=== PATIENT | female | born 1985 | race Caucasian/White ===

== ENCOUNTER 2022-01-10 09:02 | Observation (INO) ==
--- NOTE | 2022-01-07 11:39 | Anesthesiology Consultation ---
Date of Service January 07, 2022 Assessment & Plan (1) Encounter for pre-operative examination: - check urine test STAT am DOS. To anesthesiologist discretion if additional testing needed DOS. Patient transitioning name to Florentino, in process of changing legal documents. Preferred pronouns: he/him. - COVID screening: Per glue bone crusher on 01/07/2022: Travel screen negative, no known COVID-19 positive contacts or current COVID-19 related symptoms in past 2 weeks. Pt vaccinated. Surgeon arranging preop COVID testing, scheduled 01/08/2022. Awaiting results. Chart Review Chart Review: Acceptable Risk for Surgery and Patient NOT seen in Pre Admission Testing History Surgery Operation Date: 01/10/22 09:35 Proposed Procedures p Total Laparoscopic Hysterectomy with Bilateral Salpingo-oophorectomy, Cystoscopy with Possible Laparotomy - Vance Perrin MD Height/Weight Height: 5 ft 4.5 in Weight: 68.039 kg Allergies Allergy/AdvReac Type Severity Reaction Status Date / Time No Known Allergies Allergy Verified 01/07/22 10:45 Medications Home Medications Medication Instructions Recorded Confirmed Last Taken atorvastatin 10 mg tablet (Lipitor) 10 mg PO HS 01/07/22 01/07/22 Unknown qajkolyuwa-ulewknkczgzau-pjbxhazx 1 tab PO Q4H PRN 01/07/22 01/07/22 Unknown 50 mg-325 mg-40 mg tablet cholecalciferol (vitamin D3) 125 125 mcg PO QAM 01/07/22 01/07/22 Unknown mcg (5,000 unit) tablet (Vitamin D3) glucosamine-chondroitin 250 mg-200 1 tab PO QAM 01/07/22 01/07/22 Unknown mg tablet (Osteo Bi-Flex) hydroxyzine HCl 25 mg tablet 25 mg PO BID PRN 01/07/22 01/07/22 Unknown milk thistle 500 mg capsule 500 mg PO QAM 01/07/22 01/07/22 Unknown multivitamin 1 cap PO QAM 01/07/22 01/07/22 Unknown olanzapine 20 mg tablet 20 mg PO HS 01/07/22 01/07/22 Unknown omeprazole 20 mg capsule,delayed 20 mg PO QAM 01/07/22 01/07/22 Unknown release rizatriptan 10 mg tablet 10 mg PO UD PRN 01/07/22 01/07/22 Unknown testosterone cypionate 200 mg/mL 80 mg SUBCUT Q7D 01/07/22 01/07/22 Unknown intramuscular kit topiramate 50 mg tablet 50 mg PO BID 01/07/22 01/07/22 Unknown trazodone 100 mg tablet 100 mg PO HS PRN 01/07/22 01/07/22 Unknown zinc 50 mg tablet 50 mg PO QAM 01/07/22 01/07/22 Unknown Past Medical History Medical History Anxiety Bipolar disorder [id number] transgender person transitioning for a year. taking testerostone GERD (gastroesophageal reflux disease) Hx of Graves' disease treated about 6 years ago Hyperlipidemia Migraine Past Surgical History Surgical History Hx of section x 3 Hx of oral surgery multiple teeth removed Social History Smoking Status: Current every day smoker tobacco type: e-cigarettes Smoking cigarettes per day: vape Do You Dip or Chew Tobacco: No Hx Alcohol Use: Yes alcohol intake frequency: a few times a month Hx Substance Use: Yes substance use type: marijuana Last Used Substance Other:: ocas use Testing Laboratory Results 12/25/2021 WBC: 12.3 H/H: 15/47 PLATELETS: 304 SODIUM: 139 POTASSIUM: 4.3 CHLORIDE: 103 CO2: 25 BUN: 10 CREATININE: 0.8 GLUCOSE: 88
[~2022-01-10 09:02] MED LIST: LACTATED RINGER'S 1,000 ML IV SCH; LR 15ML/HR IV SCH; ceFAZolin 2000MG 2,000 MG/15 ML SYR IV SCH
[2022-01-10] MEDS ORDERED: PROPOFOL IV EMULSION 10 MG/ML 20 ML VIAL IV ONE (09:18)
[2022-01-10] MEDS ORDERED: GLYCOPYRROLATE 0.2 MG/ML VIAL ONE ×2 (09:18→12:25)
[2022-01-10] MEDS ORDERED: LIDOCAINE 2% 2 ML VIAL/AMP(20MG/ML) INFIL ONE (09:18)
[2022-01-10] MEDS ORDERED: DEXAMETHASONE SOD INJ 4 MG/ML VIAL ONE (09:18)
[2022-01-10] MEDS ORDERED: NEOSTIGMINE METHYLSULFATE 1 MG/ML 10ML VIAL ONE (09:18)
[2022-01-10] MEDS ORDERED: ONDANSETRON INJ 2 MG/ML 2 ML VIAL ONE (09:18)
[2022-01-10] MEDS ORDERED: fentaNYL citrate 100 MCG/2 ML VIAL ONE (09:19)
[2022-01-10] MEDS ORDERED: ROCURONIUM BROMIDE 10 MG/ML 5 ML VIAL IV ONE ×3 (09:19→12:57)
[2022-01-10] MEDS ORDERED: MIDAZOLAM HCL 1 MG/ML 2ML VIAL ONE (09:19)
[2022-01-10] MEDS ORDERED: ePHEDrine sulfate 50 MG/ML AMP IV PRN (09:37)
[2022-01-10] MEDS ORDERED: MEPERIDINE HCL 25 MG/ML CARP/VIAL IV PRN (09:37)
[2022-01-10] MEDS ORDERED: ATROPINE SULFATE 0.1 MG/ML 10ML SYR IV PRN (09:37)
[2022-01-10] MEDS ORDERED: HYDROmorphone INJ 1 MG/ML SYRINGE IV PRN (09:37)
[2022-01-10] MEDS ORDERED: ONDANSETRON INJ 2 MG/ML 2 ML VIAL IV PRN ×2 (09:37→14:47)
[2022-01-10] MEDS ORDERED: PHENYLEPHRINE 100MCG/ML 5ML SYR IV PRN (09:37)
[2022-01-10] MEDS ORDERED: LABETALOL HCL IV 5 MG/ML 20ML IV PRN (09:37)
--- NOTE | 2022-01-10 11:54 | History & Physical Bridge Note ---
Date of Service January 10, 2022 History & Physical Bridge Note I have examined the patient, reviewed the History & Physical and in the interval since the performance of the History & Physical I have noted the following changes of clinical significance: no changes noted
[2022-01-10] MEDS ORDERED: METHYLENE BLUE 0.5% 10 ML VIAL ONE (11:55)
[2022-01-10] MEDS ORDERED: BUPIVACAINE 0.5 % 5 MG/1 ML MPF 30ML VIAL ONE (11:55)
[2022-01-10] MEDS ORDERED: PHENYLEPHRINE 100MCG/ML 5ML SYR ONE (12:24)
[2022-01-10] MEDS ORDERED: ePHEDrine sulfate 50 MG/ML SYR ONE (12:53)
[2022-01-10] MEDS ORDERED: FLOSEAL HEMOSTATIC MATRIX 10ML TOP ONE (13:41)
[2022-01-10] MEDS ORDERED: MAGNESIUM HYDROXIDE SUSP 30 ML UDC PO PRN (14:47)
[2022-01-10] MEDS ORDERED: PROMETHAZINE HCL 25 MG in SODIUM CHLORIDE 0.9% 50 ML IV PRN (14:47)
[2022-01-10] MEDS ORDERED: ZOLPIDEM TARTRATE 5 MG TAB PO PRN (14:47)
[2022-01-10] MEDS ORDERED: oxyCODONE/ACETAMINOPHEN 5mg/325mg TAB PO PRN (14:47)
[2022-01-10] MEDS ORDERED: SIMETHICONE 80 MG CHEW PO PRN (14:47)
[2022-01-10] MEDS ORDERED: PROMETHAZINE HCL 12.5 MG in SODIUM CHLORIDE 0.9% 50 ML IV PRN (14:47)
--- NOTE | 2022-01-10 14:47 | Post Operative Brief Note ---
Immediate Post Op Note v1 Date of Surgery January 10, 2022 Pre & Post Diagnosis Operation Date: 01/10/22 10:40 Pre-Op Diagnosis: Gender Dysphoria, Abnormal Uterine Bleeding, Faile Post-Op Diagnosis: Gender Dysphoria, Abnormal Uterine Bleeding, Faile I identified the patient and participated in the time-out.: Yes Procedure Operation Date: 01/10/22 10:40 Actual Procedures p Total Laparoscopic Hysterectomy with Bilateral Salpingo-oophorectomy, Cystoscopy, Lysis of Adhesions (Bilateral) - Vance Perrin MD Surgeon Vance Perrin MD Department Chairperson patsy banks Estimated Blood Loss 10 Findings Consistent with Post-Op Diagnosis Drains Crenshaw Catheter (inserted by surgeon, removed by surgeon at end of case. )
[2022-01-10] MEDS ORDERED: LACTATED RINGER'S 1,000 ML IV SCH (15:00)
[2022-01-10] MEDS: fentaNYL citrate 100 MCG/2 ML VIAL IV PRN ×3 (15:09→15:55)
--- NOTE | 2022-01-10 15:38 | Anesthesiology Progress Note ---
Date of Service January 10, 2022 Anesthesia Post Procedure Vital Signs Vital Signs: Temp Pulse Pulse Resp BP BP Pulse Ox 01/10/22 15:25 71 17 124/69 98 01/10/22 15:15 66 17 122/74 95 01/10/22 15:05 75 18 132/78 97 01/10/22 14:55 74 21 125/74 100 01/10/22 14:45 80 20 117/62 100 01/10/22 14:38 36.1 C L 74 18 113/57 L 100 01/10/22 09:55 36.7 C 67 20 106/66 100 Pain Intensity Abdomen: Pain Intensity: 3 Transfer of Care Handoff Completed per policy Notes Mental Status: alert / awake / arousable Patient Amnestic to Procedure: Yes Nausea / Vomiting: adequately controlled Pain: adequately controlled Airway Patency, RR, SpO2: stable & adequate BP & HR: stable & adequate Hydration State: stable & adequate Anesthetic Complications: no major complications apparent
[2022-01-10] MEDS: IBUPROFEN 600 MG TAB PO PRN (18:18)
[2022-01-10] MEDS: oxyCODONE/ACETAMINOPHEN 5mg/325mg TAB PO PRN (18:19)
[2022-01-10] MEDS: NICOTINE POLACRILEX 2 MG GUM MT PRN ×2 (18:21→20:29)
[2022-01-10] MEDS: TOPIRAMATE 50 MG TAB PO SCH (20:28)
[2022-01-10] MEDS: DOCUSATE SODIUM 100 MG CAP PO SCH (20:30)
[2022-01-10] MEDS ORDERED: ATORVASTATIN 10 MG TAB PO SCH (21:00)
--- NOTE | 2022-01-11 00:43 | Operative Report (OR) ---
DATE OF PROCEDURE: 01/10/2022 INDICATION FOR SURGERY: This is a 36-year-old with the following diagnoses: 1. Gender dysphoria. 2. Menorrhagia, unresponsive to medical therapy. PREOPERATIVE DIAGNOSES: 1. Gender dysphoria. 2. Menorrhagia, unresponsive to medical therapy. POSTOPERATIVE DIAGNOSES: 1. Gender dysphoria. 2. Menorrhagia, unresponsive to medical therapy. SURGERIES: 1. Total laparoscopic hysterectomy. 2. Bilateral salpingo-oophorectomy. 3. Cystoscopy. 4. Extensive lysis of adhesion in the abdomen. SURGEON: Vance Perrin MD. CLAIM MANAGER: JEAN CLAUDE Moura. ATTESTATION FOR CLAIM MANAGER: Computer Scientist was necessary to help with retraction and manipulation in order to provide for safe surgery. ANESTHESIA: General. DRAINS: None. ESTIMATED BLOOD LOSS: 10 mL. INTRAVENOUS FLUIDS: 1 liter. URINE OUTPUT: 200 mL of clear urine at the end of the procedure. SPECIMEN: Uterus and cervix, left and right fallopian tube and ovaries. INTRAOPERATIVE COMPLICATIONS: None. PATIENT CONDITION: Stable. DISPOSITION: Postanesthesia care unit. ATTESTATION: I performed the entire procedure. FINDINGS: Normal female escutcheon. The clitoris appeared a little bit enlarged probably because she is on testosterone. The uterus was about 8-10 week size. Both adnexa appeared grossly normal. There was adhesion of the omentum to the abdominal wall. Rest of the abdominopelvic exam is unremarkable. DESCRIPTION OF PROCEDURE: The patient was taken to the operating room where she was prepped and draped in normal sterile fashion in dorsal lithotomy position. Crenshaw catheter was placed in the bladder. A medium size VK retractor was placed in the cervix to help manipulate the uterus during laparoscopy. Attention was paid to the abdominal part of the procedure where a supraumbilical incision was made with a scalpel and carried down. The fascia was grabbed with a Claire. Veress needle attached to a syringe was introduced into the abdomen at a 45-degree angle while tenting up the abdomen. Intraabdominal placement was confirmed with a water-filled syringe. Water drop and suction test was performed. The Veress needle was removed and a 5-mm trocar attached to the 5-mm straight camera was introduced into the abdomen at a 45-degree angle while tenting up the abdomen. This was a nonbladed trocar and placement was done under direct visualization. Once inside the abdomen, placement was confirmed. Three more accessory ports were placed, one 5 mm on the right and two 10-mm trocars on the left, these were all done under direct visualization. Once inside the abdomen, it was noted that the patient had abdominal adhesion of omentum to the abdominal wall. This was carefully dissected off through the contralateral port and under direct visualization, the omentum was examined and it was clear that there was no bowel in the omentum. LigaSure was passed through the port and the adhesions carefully transected of the anterior abdominal wall. These adhesions were probably from the previous abdominal surgeries, she has had 3 C-sections. Upon releasing of the abdominal adhesions, the abdomen was further examined. The general appearance of the pelvis including the presence and absence of other abdominal and pelvic adhesions were examined. The uterus is about 8 weeks' size. The left and right fallopian tube appeared grossly normal. The left fallopian tube was attached to the omentum on the left side. This was carefully dissected with traction and countertraction and using the Harmonic scalpel. The LigaSure was passed through the left accessory port. The left fallopian tube was identified and grabbed 4 cm from the cornua of the uterus with the LigaSure and transected allowing the opening of the left anterior leaf of the broad ligament. This allowed for fenestration of the posterior left broad ligament. The midsection of the left fallopian tube, utero-ovarian and meso- ovarian pedicles were transected as well. Same procedure was performed on the contralateral side on the right. Anterior leaf of the ligament was dissected to the midsection of the vesicouterine peritoneum over the bladder using the Harmonic scalpel. Same procedure was performed on contralateral side. The posterior broad ligament peritoneum was carefully dissected also from both sides over the uterosacral arch in order to displace the ureters laterally. Using the traction and countertraction, [place] retractor and irrigation probe was also used to further dissect the bladder off the lower segment of the uterus. Bladder pillars and pubovesical fascias were dissected as well. The Harmonic scalpel was used to obtain hemostasis when needed. The uterine manipulator was now palpable over the vaginal tissue. The right uterine pedicles were skeletonized and coagulated with the LigaSure. There was good hemostasis. Same procedure was performed on the contralateral side. The cardinal ligaments were transected on both sides as well. Once again, hemostasis was obtained. Colpotomy was now performed using the LigaSure hook from both sides. The uterus was removed through the vagina while still attached to the uterine manipulator. Sponges placed in a glove and placed in the vagina to help maintain pneumoperitoneum. With a grasper, the remaining section of the left ovary was positioned anteromedially where a salpingo-oophorectomy was performed using the Harmonic scalpel. Same procedure was performed on contralateral side. The adnexal masses were also removed through the vagina. EndoStitch closure device was passed through the 10-mm port on the left and using the [place] grasper for traction, the colpotomy closure was performed. Uterosacral ligaments were incorporated into the closure in order to decrease the risks of prolapse. Lapra-Tys were used with the EndoStitch. Attention was paid to the cystoscopy part of the procedure where a cystoscope was placed into the bladder. Findings of the bladder showed no sutures or masses or lesions in the bladder. The trigone area was identified. Bubble sign was seen in the bladder, indicating a closed loop. The left and right ureteral orifices were seen and urine was seen jetting through these orifices without any problems. The cystoscope was removed. Attention was paid back to the abdominal part of the procedure where the incisions were closed. A Preston-Timothy was used to close the 10-mm ports under direct visualization. The 5-mm ports are closed with Dermabond. Skin over the 10-mm incision sites were closed with 4-0 Monocryl. All instruments were removed from the abdomen and the vagina and accounted for x2 including sponges, needles, and retractors. The patient was sent to recovery in stable condition. Job ID: [id number] [facility]
[2022-01-11 07:23] LABS: Basophils # (auto) 0.01 K/uL (0-0.2); Basophils % (auto) 0.1 %; Eosinophils # (auto) 0.03 K/uL (0-0.5); Eosinophils % (auto) 0.2 %; Hemoglobin 13.9 g/dL (12.0-16.0); Immature Granulocytes # (auto) 0.07 K/uL (0.00-0.02); Immature Granulocytes % (auto) 0.4 %; Lymphocytes # (auto) 2.38 K/uL (1.2-3.4); Lymphocytes % (auto) 13.4 %; Mean Corpuscular Hemoglobin 30.5 pg (25-34); Mean Corpuscular Hgb Conc 34.8 g/dL (32-36); Mean Corpuscular Volume 87.9 fL (80-100); Monocytes % (auto) 7.3 %; Neutrophils # (auto) 13.94 K/uL (1.4-6.5); Neutrophils % (auto) 78.6 %; Platelet Count 284 K/uL (130-400); RDW Coefficient of Variation 13.4 % (11.5-14.5); RDW Standard Deviation 43.4 fL (36.4-46.3); Red Blood Count 4.55 M/uL (4.2-5.4); White Blood Count 17.73 K/uL (4.8-10.8)
[2022-01-11 07:38] LABS: BUN Creatinine Ratio 15.9 (10-20); Calcium 8.3 mg/dl (8.5-10.1); Est GFR (African American) 129.8 ml/min; Potassium 4.1 mmol/L (3.5-5.1)
[2022-01-11] MEDS: NICOTINE POLACRILEX 2 MG GUM MT PRN (08:05)
[2022-01-11] MEDS: DOCUSATE SODIUM 100 MG CAP PO SCH (08:29)
[2022-01-11] MEDS: IBUPROFEN 600 MG TAB PO PRN ×2 (08:29→11:59)
[2022-01-11] MEDS: oxyCODONE/ACETAMINOPHEN 5mg/325mg TAB PO PRN ×2 (08:29→11:59)
[2022-01-11] MEDS: TOPIRAMATE 50 MG TAB PO SCH (08:30)
--- NOTE | 2022-01-11 11:14 | Obstetrical Progress Note ---
Date of Service January 11, 2022 Assessment & Plan (1) S/P laparoscopic hysterectomy: POD #1 Pt doing well d/c home with instrcutions Subjective Review of Systems All systems reviewed & are unremarkable except as noted in HPI & below Physical Exam Constitutional WD/WN, vitals as above Eyes PERRL, conjunctivae normal, anicteric sclerae ENMT external ear and nose normal, oropharynx normal Neck trachea midline, no thyromegaly Respiratory normal respiratory effort, lungs clear to auscultation Cardiovascular RRR, no murmur, no edema Chest (Breasts) normal inspection/palpation of breasts Gastrointestinal (Abdomen) normal bowel sounds, soft, nontender, no hepatosplenomegaly Musculoskeletal no cyanosis or clubbing, extremities motor strength 5/5 Skin + incision (Incision clean,dry and intact) Neurologic patellar DTR's 2+ bilat, sensation intact Psychiatric A+Ox3, euthymic affect Genitourinary no vaginal lesions, no adnexal mass Lymphatic no cervical or axillary lymphadenopathy Results & Data ([facility]) Vital Signs (Past 12 Hours) Vital Signs Temp Pulse Resp BP BP Pulse Ox 01/11/22 10:38 36.8 C 69 18 111/72 106/52 L 97 01/11/22 08:06 36.8 C 69 18 111/72 01/11/22 04:20 36.5 C 68 18 104/61 97 01/11/22 01:24 36.9 C 79 18 106/52 L 97
--- NOTE | 2022-01-13 06:59 | Discharge Summary (DS) ---
DATE OF DISCHARGE: 01/11/2022. HISTORY OF PRESENT ILLNESS: This is a 36-year-old with menorrhagia, status post gender dysphoria, me norrhagia, has failed medical treatment. The patient underwent total laparoscopic hysterectomy, bila teral salpingo-oophorectomy, and cystoscopy on 01/10/2022. Details of surgery are in the surgical no te. The patient did well and stayed overnight for overnight observation. She was discharged home in stable condition on 01/11/2022. PAST MEDICAL HISTORY: 1. Gender dysphoria. 2. Anxiety. 3. Bipolar disorder. 4. Gastroesophageal reflux disease. 5. History of Graves disease. 6. Hyperlipidemia. 7. Migraines. PAST SURGICAL HISTORY: 1. History of C-sections x3. 2. History of oral surgery. SOCIAL HISTORY: The patient is currently a smoker. Denies tobacco, drug, or alcohol use. FAMILY HISTORY: Noncontributory. PHYSICAL EXAMINATION: GENERAL: A well-developed, well-nourished patient in no acute distress. VITAL SIGNS: Blood pressure is 111/72, pulse is 69, respirations 18, temperature 36.8. HEART: S1 and S2, regular rhythm and rate. LUNGS: Clear to auscultation bilaterally. ABDOMEN: Nontender, nondistended, positive bowel sounds. Incisions are clean, dry, and intact. EXTREMITIES: No cyanosis, clubbing, or edema. LABORATORY DATA: On 01/11/2022 showed hemoglobin of 13.9 and hematocrit of 40.0. CONDITION ON DISCHARGE: Stable. OPERATIONS: 1. Total laparoscopic hysterectomy. 2. Bilateral salpingo-oophorectomy. 3. Cystoscopy. DISCHARGE DIAGNOSIS: Postoperative after total laparoscopic hysterectomy and bilateral salpingo-ooph orectomy. PLAN ON DISCHARGE: The patient is discharged home with instructions regarding activity, diet, follow up appointment, and medications. Job ID: [id number]
== END 2022-01-11 12:05 | disposition home or self-care (01) ==
LOC: ASU 09:02 → 4E2 09:02